=== PATIENT | female | born 1945 | race African-American/Black ===

== ENCOUNTER 2023-04-01 11:40 | Emergency (ER) | payer MEDICAID, SELFPAY ==
--- NOTE | 2023-04-01 11:46 | XR_ITS ---
WS: [id number] LEFT KNEE: 3 VIEW(S) TECHNIQUE: AP, oblique(s) and lateral. HISTORY: injury COMPARISON: None available. Acute fracture through the midportion of the patella with multiple small osseous fragments associated with the fracture. Patellar fracture is distracted by at least 2.8 cm. No additional fractures are i dentified at the knee. Joint spaces are mildly narrowed. Minimal soft tissue swelling and joint effusion. IMPRESSION: 1. Comminuted, central patellar fracture with fragments distracted by 2.8 cm. 2. No additional fracture.
[2023-04-01 11:49] VITALS: BP 189/114; PULSE 90; RESP 14; TEMP 36.8; O2SAT 98; BMI 27.3
--- NOTE | 2023-04-01 12:31 | ED_ITS ---
HPI - Extremity Problem General: Chief complaint: Extremity Injury, Lower Stated complaint: fall,left knee pain Time Seen by Provider: 04/01/23 11:59 Source: patient Mode of arrival: ambulatory History of Present Illness: 77-year-old female with a recent fall sh e landed on the left knee she is unable to extend her leg severe pain across the patella deformity of the patella with proximal dislocation. She denies any other injuries she is not on any anticoagulants. MD Complaint: joint swelling and joint pain Associated symptoms: Deny chest pain, fever(s) or rash Review of Systems Const: Denies: fever(s) or chills Card: Denies: chest pain Resp: Denies: dyspnea GI: Denies: abdominal pain : Denies: dysuria, urinary frequency or urinary urgency Musc: Reports: joint pain and joint swelling; Denies: neck pain or back pain Skin/Breast: Denies: rash Physical Exam Const: GENERAL APPEARANCE: cooperative and comfortable ORIENTATION/CONSCIOUSNESS: Yes awake, Yes oriented to person, Yes oriented to place and Yes oriented to time HENMT: COMMON NORMALS: normocephalic, atraumatic and hearing grossly normal bilaterally HEAD & SCALP: normocephalic and atraumatic Resp: COMMON NORMALS: normal respiratory effort, No retractions, No use of accessory muscles and clear to auscultation bilaterally AUSCULTATION: clear to auscultation bilaterally Cardio: COMMON NORMALS: regular rate, regular rhythm and No murmurs present (Cardio) RATE: regular rate RHYTHM: regular rhythm GI: COMMON NORMALS: Soft to palpation and No hepatosplenomegaly present AUSCULTATION: Yes normoactive bowel sounds PALPATION: Yes Soft to palpation, No Tenderness to palpation present (GI), No Guarding due to palpation present (GI) and Yes No hepatosplenomegaly present Extremity: NARRATIVE EXTREMITY EXAM: Left knee swelling obvious deformity of the patella Neuro: SENSORIUM/ORIENTATION: Yes oriented to person, Yes oriented to place and Yes oriented to time Skin: COMMON NORMALS: no rashes or lesions noted GENERAL SKIN EXAM: no rashes or lesions noted Course Vital Signs: Vital signs: Vital Signs Temperature 98.2 F 04/01/23 11:49 Pulse Rate 90 04/01/23 11:49 Respiratory Rate 14 04/01/23 11:49 Blood Pressure 189/114 04/01/23 11:49 Pulse Oximetry 98 04/01/23 11:49 Oxygen Delivery Me thod Room Air 04/01/23 11:49 MDM - Extremity (Nontraumatic) Medical Decision Making X-ray shows patellar fracture with distraction of the patella superiorly. Reviewed with Dr. España who recommends that the patient be put in a knee immobilizer nonweightbearing or if weightbearing must keep leg in full extension. Follow-up with orthopedics for definitive care pain medications given as well as a walker per patient preference Medical Records I reviewed the patient's medical records. Lab Data I reviewed the patient's lab results. All radiology interpretation(s) finalized by discharge Discharge Plan Discharge Patient Disposition: Home Clinical Impression: Fracture, patella Condition: Stable Prescriptions: New hydrocodone-acetaminophen 5-325 mg tablet 1 tab PO Q6H PRN (Reason: pain) Qty: 20 0RF Discharge Orders: Discharge ED (Routine); Ordered 04/01/23 Ordered By: Quinn Byrd Other Ambulatory Orders: DME: Walker (Order) Location: None Selected Ordered By: Quinn Byrd Referrals: Blossom So PA [Primary Care Provider] - Discharge Diet: Usual diet Discharge Activity: Limit activity as instructed Patient Instructions: Opioid Safety, Pain Management Activity Restrictions/Additional Instructions: Thank you for choosing [facility] for your healthcare needs today. Please realize this is an emergency room and that we are providing you with a medical screening exam and this may not be complete and all inclusive of all the testing and or work up that you may need to determine your ailment or severity of your illness. It is very important that you follow up as instructed or that you return to the Emergency Department should you have concerns or if your condition changes or worsens in any way. You are seen today after a fall. You have a fractured left patella. You should leave the left knee in the knee immobilizer and use walker for ambulation support. Case management will make arrangements for you to have a follow-up appointment with orthopedics for definitive repair. Nonweightbearing on the left leg unless it is fully extended as demonstrated in the emergency room today. Coding Level of Care Code ED Photoengraving Finisher for Layla Pretty
--- NOTE | 2023-04-01 13:34 | PC.SOCIAL ---
Pre-Cert number assigned: [id number]
== END 2023-04-01 14:31 | disposition home or self-care (01) ==
PROVIDERS: Emergency Provider Family Medicine; PCP Physician Assistant
DX: S82.042A Displaced comminuted fracture of left patella, initial encounter for closed fracture (principal); W19.XXXA Unspecified fall, initial encounter
CPT/HCPCS: 29530; 73562; 99283

== ENCOUNTER 2023-04-22 23:51 | Inpatient (IN) | payer MEDICAID, SELFPAY ==
[2023-04-22 23:55] VITALS: BP 180/116; PULSE 99; RESP 16; TEMP 36.6; O2SAT 98; BMI 32.8
[2023-04-23] VITALS (28 sets, daily range): BP systolic 110–201; BP diastolic 79–145; PULSE 59–109; RESP 16–98; TEMP 36.7–37.1; O2SAT 94–100; BMI 32.8
--- NOTE | 2023-04-23 00:05 | ECG_ITS ---
[facility] Test Date: 2023-04-23 Pat Name: Radha Hoffmann Department: Room: Gender: Female Cv/Cvn Cv Tsc System Operator: : 1945 Requested By: Nain Carvajal Order Number: [id number] Samia MD: Kenny Mcfarlane M.D. Measurements Intervals [place] Rate: 99 P: 0 [place]: 0 QRS: 145 QRSD: 166 T: 85 QT: 403 QTc: 518 Interpretive Statements ATRIAL FIBRILLATION WITH ABERRANT CONDUCTION OR VENTRICULAR PREMATURE COMPLEXES RIGHT AXIS DEVIATION [QRS AXIS > 100] INTRAVENTRICULAR CONDUCTION DELAY [130+ ms QRS DURATION] Compared to ECG 05/20/2016 21:21:38 Ventricular premature complex(es) now present Aberrant conduction of supraventricular beat(s) now present Right-axis deviation now present Intraventricular conduction delay now present Myocardial infarct finding no longer present T-wave abnormality no longer present Possible ischemia no longer present Electronically Signed On 04-23-2023 15:45:57 CYTOGENETIC TECHNICIAN by Kenny Mcfarlane M.D. [id number]
--- NOTE | 2023-04-23 00:05 | XRR_ITS ---
PROCEDURE INFORMATION: Exam: XR Chest Exam date and time: 04/23/2023 12:27 AM Age: 77 years old Clinical indication: Chest wall pain; Additional info: Cxp TECHNIQUE: Imaging protocol: Radiologic exam of the chest. Views: 1 view. COMPARISON: CR XR chest 1V [id number] 05/20/2016 9:40 PM FINDINGS: Tubes, catheters and devices: Monitor leads project over the chest. Lungs: No significant or acute findings. No consolidation. Pleural spaces: No significant costophrenic angle blunting. No pneumothorax. Heart/Mediastinum: Stable cardiomegaly. Vasculature: Atherosclerotic tortuosity of the thoracic aorta. Bones/joints: No acute osseous abnormality. XR/XR chest 1V portable [id number] IMPRESSION: Stable cardiomegaly.
--- NOTE | 2023-04-23 00:18 | ED_ITS ---
HPI - Chest Pain 2 General: Chief Complaint: Chest Pain Stated Complaint: indigestion Time Seen by Provider: 04/23/23 00:05 History of Present Illness: 77-year-old female presents to the emerg ency department via EMS personnel. Patient states that at approximately 1600 today while she was resting she started having a burning pressure sensation to the middle of her chest. She states she became nauseated and vomited and became very sweaty at that time. She states she currently rates her chest pain a 6 out of 10. She states she does feel short of breath when she attempts to exert herself but feels like she is not currently short of breath. She does not appear to be very diaphoretic upon arrival here to the emergency department. She is a very poor historian regarding her medical history. She is accompanied by a family member who is assisting in providing additional information. He states that the patient has a history of atrial fibrillation, hypertension and high cholesterol. Associated symptoms: Reports diaphoresis, nausea, palpitations and vomiting Review of Systems 2 General: Reports: 10 or more systems reviewed and unremarkable except in HPI and below Const: Reports: diaphoresis Card: Reports: chest pain, palpitations, irregular heart rhythm and dyspnea on exertion GI: Reports: nausea and vomiting Physical Exam 2 Const: COMMON NORMALS: patient oriented x3 GENERAL APPEARANCE: in distress, ill appearing and diaphoretic HENMT: COMMON NORMALS: normocephalic, atraumatic, EAC's normal and Normal external nose present HEAD & SCALP: normocephalic and atraumatic NOSE: N ormal external nose present EXTERNAL AUDITORY CANAL: EAC's normal Eye: COMMON NORMALS: Equal, round and reactive pupils present and EOMs intact bilaterally PUPIL: Yes Equal, round and reactive pupils present Neck/C-Spine: COMMON NORMALS: full ROM, no lymphadenopathy and supple Resp: COMMON NORMALS: normal respiratory effort and clear to auscultation bilaterally AUSCULTATION: clear to auscultation bilaterally Cardio: COMMON NORMALS: S1 normal heart sound present, S2 normal heart sound present and Peripheral pulses 2+ throughout RATE: tachycardic RHYTHM: a bnormal rhythm HEART SOUNDS: S1 normal heart sound present and S2 normal heart sound present PERIPHERAL PULSES: Peripheral pulses 2+ throughout GI: COMMON NORMALS: Normal to inspection, nondistended, normoactive bowel sounds present, Soft to palpation and non-tender PALPATION: Yes Soft to palpation Back/Pelvis: COMMON NORMALS: thoracic and lumbar spine normal to inspection and thoraco-lumbar ROM normal Extremity: COMMON NORMALS: normal to inspection and capillary refill normal LEFT LOWER EXTREMITY: Yes knee joint (Left knee immobilizer in place) Neuro: COMMON NORMALS: patient oriented x3, moves all extremities and no focal motor deficits Course 2 Vital Signs: Vital signs: Vital Signs Temperature 97.9 F 04/22/23 23:55 Pulse Rate 75 04/23/23 03:01 Respiratory Rate 28 H 04/23/23 02:45 Blood Pressure 154/88 04/23/23 03:01 Pulse Oximetry 97 04/23/23 03:01 Oxygen Delivery Me thod Room Air 04/23/23 03:01 MDM - Chest Pain Medical Decision Making I contacted Dr. Goss the animal anatomist and at this time he is requested that we not activate our STEMI team. I did discuss the patient's EKG to include a left bundle branch block and he requested that the we continue on with our cardiac medications and anticoagulation as well as Plavix and contact him once we have an initial troponin T result back Medical Records I reviewed the patient's medical records. Lab Data I reviewed the patient's lab results. 04/23/23 00:25 04/23/23 00:25 Radiology Impressions Chest X-Ray 04/23/23 00:05 IMPRESSION: Stable cardiomegaly. Laboratory Results WBC 10.49 10^3/uL (3.29-11.43) 04/23/23 00:25 RBC 5.75 10^6/uL (3.85-5.65) H 04/23/23 00:25 Hgb 13.80 g/dL (11.27-16.99) 04/23/23 00:25 Hct 47.1 % (36-47) H 04/23/23 00:25 MCV 81.9 fl (85-98) L 04/23/23 00:25 MCH 24.0 pg (27-33) L 04/23/23 00:25 MCHC 29.3 g/dL (30-55) L 04/23/23 00:25 RDW 16.3 % (12.1-15.1) H 04/23/23 00:25 Plt Count 543 10^3/cmm (157-399) H 04/23/23 00:25 MPV 9.2 fL (7.4-10.4) 04/23/23 00:25 Neut % (Auto) 77.5 % 04/23/23 00:25 Lymph % (Auto) 13.9 % 04/23/23 00:25 [place] % (Auto) 7.3 % 04/23/23 00:25 Eos % (Auto) 0.5 % 04/23/23 00:25 Baso % (Auto) 0.4 % 04/23/23 00:25 Neut # (Auto) 8.13 10^3/uL (1.8-7.7) H 04/23/23 00:25 Lymph # (Auto) 1.5 10^3/uL (0.8-4.8) 04/23/23 00:25 [place] # (Auto) 0.8 10^3/uL (0.2-0.9) 04/23/23 00:25 Eos # (Auto) 0.1 10^3/uL (0.0-0.8) 04/23/23 00:25 Baso # (Auto) 0.0 10^3/uL (0.0-0.1) 04/23/23 00:25 Nucleated RBC % (auto) 0 % 04/23/23 00:25 Nucleated RBCs # 0.0 /100WBC 04/23/23 00:25 PT 16.60 SECONDS (12.1-14.9) H 04/23/23 00:25 INR 1.29 (0.8-1.2) H 04/23/23 00:25 APTT 33.3 SECONDS (23.9-36.7) 04/23/23 00:25 Sodium 135 mmol/L (136-145) L 04/23/23 00:25 Potassium 3.3 mmol/L (3.5-5.1) L 04/23/23 00:25 Chloride 101 mmol/L (98-107) 04/23/23 00:25 Carbon Dioxide 19 mmol/L (22-29) L 04/23/23 00:25 Anion Gap 18.3 (5-19) 04/23/23 00:25 BUN 6 mg/dL (8-23) L 04/23/23 00:25 Creatinine 0.6 mg/dL (0.5-0.9) 04/23/23 00:25 GFR Calculation Not Reportable 04/23/23 00:25 Glucose 132 mg/dL (65-115) H 04/23/23 00:25 Calculated Osmolality 279 mOsm/kg (285-295) L 04/23/23 00:25 Calcium 9.0 mg/dL (8.5-10.5) 04/23/23 00:25 Total Bilirubin 0.7 mg/dL (0.15-1.2) 04/23/23 00:25 AST 19 U/L (0-32) 04/23/23 00:25 ALT 10 U/L (0-33) 04/23/23 00:25 Alkaline Phosphatase 107 U/L (35-105) H 04/23/23 00:25 Troponin T Baseline 38 ng/L (0-10) H 04/23/23 00:25 Troponin T 120 Minute 38.20 ng/L (0-10) H 04/23/23 02:36 Troponin T 120 Minute Cancelled 04/23/23 02:36 Delta Troponin T 0.20 ABS# (0-10) 04/23/23 02:36 Delta Troponin T Cancelled 04/23/23 02:36 NT-Pro-B Natriuret Pep 3099 pg/mL (0-450) H 04/23/23 00:25 Total Protein 9.3 g/dL (6.6-8.7) H 04/23/23 00:25 Albumin 3.5 g/dL (3.5-5.2) 04/23/23 00:25 Globulin 5.8 g/dL (1.3-4.6) H 04/23/23 00:25 All radiology interpretation(s) finalized by discharge EKG Data EKG 1: Interpretation: Twelve-lead EKG obtained at midnight demonstrates atrial fibrillation with a left bundle branch block, ventricular rate of 99 bpm, QRS duration 166, QT 4 3, QTc 459, EKG 2: Interpretation: Twelve-lead EKG obtained at 219 reviewed at 221 demonstrates atrial fibrillation with multifocal PVCs, ventricular rate 80 bpm, QRS duration 172, QT 430, QTc 466 Discharge Plan Discharge Patient Disposition: Placed in Observation Clinical Impression: Acute exacerbation of CHF (congestive heart failure), Chest pain Condition: Stable Prescriptions: No Action hydrocodone-acetaminophen 5-325 mg tablet 1 tab PO Q6H PRN (Reason: pain) Qty: 20 0RF amitriptyline 25 mg tablet metoprolol succinate 50 mg tablet extended release 24 hr PO digoxin 125 mcg (0.125 mg) tablet diltiazem HCl 180 mg capsule,extended release 24 hr PO Eliquis 5 mg tablet Referrals: Blossom So PA [Primary Care Provider] - Coding Level of Care Code ED Knitting Inspector for Layla Pretty
[2023-04-23] MEDS: heparin 5,000 unit/mL INJ 1 mL 4000 UNIT IVP (00:32)
[2023-04-23] MEDS: heparin drip 25,000 UNIT/500 ML PREMIX 25.7 UNIT IV (00:34)
[2023-04-23] MEDS: clopidogrel 300 mg Tablet 600 MG PO (00:36)
[2023-04-23 01:00] LABS: Basophils % 0.4 %; Eosinophils # 0.1 10^3/uL (0.0-0.8); Eosinophils % 0.5 %; Hematocrit 47.1 % (36-47); Lymphocytes # 1.5 10^3/uL (0.8-4.8); Lymphocytes % 13.9 %; Mean Corpuscular HGB Conc 29.3 g/dL (30-55); Mean Corpuscular Volume 81.9 fl (85-98); Mean Platelet Volume 9.2 fL (7.4-10.4); Monocytes # 0.8 10^3/uL (0.2-0.9); Monocytes % 7.3 %; Neutrophils # 8.13 10^3/uL (1.8-7.7); Neutrophils % 77.5 %; Nucleated Red Blood Cells % 0 %; Platelet Count 543 10^3/cmm (157-399); Red Blood Count 5.75 10^6/uL (3.85-5.65); Red Cell Distribution Width 16.3 % (12.1-15.1); White Blood Count 10.49 10^3/uL (3.29-11.43)
[2023-04-23 01:02] LABS: INR 1.29 (0.8-1.2)
[2023-04-23 01:03] LABS: Partial Thromboplastin Time 33.3 SECONDS (23.9-36.7)
[2023-04-23 01:15] LABS: Alanine Aminotransferase 10 U/L (0-33); Albumin Level 3.5 g/dL (3.5-5.2); Alkaline Phosphatase 107 U/L (35-105); Anion Gap 18.3 (5-19); Aspartate Amino Transferase 19 U/L (0-32); Blood Urea Nitrogen 6 mg/dL (8-23); Carbon Dioxide 19 mmol/L (22-29); Chloride 101 mmol/L (98-107); Globulin 5.8 g/dL (1.3-4.6); Glucose 132 mg/dL (65-115); Osmolality Calculated 279 mOsm/kg (285-295); Potassium 3.3 mmol/L (3.5-5.1); Sodium 135 mmol/L (136-145); Total Bilirubin 0.7 mg/dL (0.15-1.2); Total Protein 9.3 g/dL (6.6-8.7)
[2023-04-23 01:17] LABS: NT Pro B Type Natriuretic Pept 3099 pg/mL (0-450)
[2023-04-23 01:29] LABS: Troponin(5th) Baseline 38 ng/L (0-10)
[2023-04-23] MEDS: metoprolol tartrate 1 mg/1 mL SDV 5 mL 5 MG IVP (01:49)
[2023-04-23] MEDS: nitroglycerin 0.4 mg sublingual Tablet SUBLINGUAL ×3 (01:54→06:42)
--- NOTE | 2023-04-23 02:05 | ECG_ITS ---
[facility] Test Date: 2023-04-23 Pat Name: Radha Hoffmann Department: Room: Gender: Female Maitre D: : 1945 Requested By: Nain Carvajal Order Number: [id number] Samia MD: Kenny Mcfarlane M.D. Measurements Intervals [place] Rate: 80 P: 0 [place]: 0 QRS: -2 QRSD: 172 T: 141 QT: 430 QTc: 497 Interpretive Statements ATRIAL FIBRILLATION WITH ABERRANT CONDUCTION OR VENTRICULAR PREMATURE COMPLEXES INTRAVENTRICULAR CONDUCTION DELAY [130+ ms QRS DURATION] Compared to ECG 04/23/2023 00:00:34 Right-axis deviation no longer present Electronically Signed On 04-23-2023 15:47:44 PLASTER CASTER by Kenny Mcfarlane M.D. [id number]
[2023-04-23] MEDS: lidocaine 2% viscous 15 ML, aluminum-mag hydrox-simethicon 30 ML, sucralfate oral liq 1 GM PO (02:13)
[2023-04-23 04:46] LABS: Magnesium 2.1 mg/dL (1.7-2.3)
--- NOTE | 2023-04-23 04:52 | USCV_ITS ---
Radha Hoffmann Age: 77 Gender: F : 1945 Exam Date: 04/23/2023 14:21 Ordering Phys: Atul Newell MD Technologist: SCARLETT [place] [facility] [place]ication: CHEST PAIN BP: 182 / 94 HR: 70 Rhythm: Atrial fibrillation Technical Quality: Poor MEASUREMENTS (Male / Female) Normal Values 2D ECHO LV Diastolic Diameter PLAX 4.1 cm 4.2 - 5.9 / 3.9 - 5.3 cm IVS Diastolic Thickness 1.7 cm 0.6 - 1.0 / 0.6 - 0.9 cm IVS Systolic Thickness 2.1 cm LVPW Diastolic Thickness 1.7 cm 0.6 - 1.0 / 0.6 - 0.9 cm LVPW Systolic Thickness 2.5 cm LVOT Diameter 1.9 cm LV Ejection Fraction 2D Teich 77.0 % LV Ejection Fraction MOD 2C 72.6 % Aorta at Sinotubular Diameter 2.5 cm IVC Diameter 1.1 cm M-MODE LA Ao Ratio MM 1.1 AV Cusp Separation MM 1.2 cm DOPPLER AV Peak Velocity 168.0 cm/s LVOT Peak Velocity 140.0 cm/s AV Area Cont Eq vti 2.1 cm squared AV Area Cont Eq pk 2.3 cm squared MV Peak Velocity 179.0 cm/s MV Area PHT 1.5 cm squared Mitral E to A Ratio 44.1 TR Peak Velocity 151.0 cm/s TR Peak Gradient 9.1 mmHg PV Peak Velocity 104.0 cm/s FINDINGS Left Ventricle Left ventricle is normal in size. Moderate to severe left ventricular hypertrophy. LV systolic function is normal with EF of 55 to 60%. No regional wall motion abnormalities are seen. Right Ventricle Normal in size and function Right Atrium Normal in size Left Atrium Severely dilated Mitral Valve Severe mitral annular calcification seen. Mild mitral regurgitation. Moderate mitral stenosis with valve area of 1.57cm2. Aortic Valve Aortic valve is thickened. No significant stenosis or regurgitation. Tricuspid Valve Mild tricuspid regurgitation. Insufficient TR jet to calculate RVSP. Pulmonic Valve Mild pulmonic regurgitation. Pericardium Normal Aorta Normal in size IVC Appears to be normal CONCLUSIONS Moderate to severe left ventricular hypertrophy. LV systolic function is normal with EF of 55 to 60%. Severe mitral annular calcification. Mild mitral regurgitation. Moderate mitral stenosis. Mild tricuspid regurgitation Mild pulmonic regurgitation Compared to prior echocardiogram from 2017, no significant changesa are seen Kenny Mcfarlane MD (Electronically Signed) Final Date: 24 April 2023 07:17 S
--- NOTE | 2023-04-23 04:56 | P.HP_ITS ---
Providers/Chief Complaint 2 Primary Care Provider: Blossom So Chief Complaint: indigestion History of Present Illness Pleasant 77-year-old lady with history of atrial fibrillation on anticoagulation with Eliquis, presented to ER after experiencing chest pain at home around 4 PM last night with irregular heartbeat, possibly some faster heart rate but she states her heart was not racing. On presentation with noted left bundle branch block without prior EKG studies available, cardiology was contacted by ER physician. She was not found to have a STEMI equivalent. In ER she is reporting symptoms are improved. Discomfort down to possibly slight heartburn, nothing more at this time. Noted atrial fibrillation on telemetry. Chest x-ray with stable cardiomegaly compared to 2017. No prior echocardiogram available. She did have some associated dyspnea as well as diaphoresis. Denies cough, headache, nausea vomiting or diarrhea. Left lower leg brace due to patellar fracture. Review of Systems 2 Const: Reports: diaphoresis; Denies: fever(s), chills, body aches or malaise ENMT: Denies: throat pain Card: Reports: chest pain; Denies: edema, pre-syncope or dyspnea on exertion Resp: Denies: dyspnea, productive cough, change in phlegm color or hemoptysis GI: Denies: abdominal pain, nausea, vomiting, diarrhea, constipation, hematochezia or melena : Denies: flank pain, urinary frequency or hematuria Musc: Denies: back pain, joint swelling or joint redness Neuro: Denies: headache(s) Medications/Allergies Home Medications Medication Instructions Recorded Confirmed Last Taken Type hydrocodone 5 mg-acetaminophen 325 1 tab PO Q6H PRN pain #20 tabs 04/01/23 Unknown Rx mg tablet amitriptyline 25 mg tablet mg 04/23/23 Unknown History apixaban 5 mg tablet (Eliquis) mg 04/23/23 Unknown History digoxin 125 mcg (0.125 mg) tablet 04/23/23 Unknown History diltiazem HCl 180 mg capsule,24 mg PO 04/23/23 Unknown History hr,extended release metoprolol succinate 50 mg mg PO 04/23/23 Unknown History tablet,extended release 24 hr Allergies Allergy/AdvReac Type Severity Reaction Status Date / Time aspirin Allergy ALGY-Anaphy Verified 04/23/23 00:04 laxis PFSH Acute 2 PFSH: Medical History (Updated 04/23/23 @ 05:32 by Atul Newell MD) A-fib Vitals/I&O/Wt Last Vital Signs Temp 97.9 F 04/22/23 23:55 Pulse 75 04/23/23 03:01 Resp 28 H 04/23/23 02:45 BP 154/88 04/23/23 03:01 Pulse Ox 97 04/23/23 03:01 O2 Del Method Room Air 04/23/23 03:01 Weight last 48 hrs Weight 92.079 kg Physical Exam 2 Narrative: Accompanied by her . Const: COMMON NORMALS: patient oriented x3 and alert GENERAL APPEARANCE: c ooperative ORIENTATION/CONSCIOUSNESS: Yes awake HENMT: COMMON NORMALS: oropharynx normal Neck/C-Spine: COMMON NORMALS: no JVD Resp: COMMON NORMALS: normal respiratory effort and clear to auscultation bilaterally AUSCULTATION: clear to auscultation bilaterally Cardio: COMMON NORMALS: no JVD, regular rhythm, S1 normal heart sound present, S2 normal heart sound present and No murmurs present (Cardio) RHYTHM: a bnormal rhythm irregularly irregular HEART SOUNDS: S1 normal heart sound present and S2 normal heart sound present GI: COMMON NORMALS: Normal to inspection, nondistended, normoactive bowel sounds present, Soft to palpation and non-tender PALPATION: Yes Soft to palpation Extremity: COMMON NORMALS: no joint enlargement and no pedal edema N ARRATIVE EXTREMITY EXAM: Left lower leg brace. Neuro: COMMON NORMALS: patient oriented x3 and moves all extremities S ENSORIUM/ORIENTATION: Yes alert Skin: COMMON NORMALS: no rashes or lesions noted GENERAL SKIN EXAM: no rashes or lesions noted Data 04/23/23 00:25 04/23/23 00:25 A&P Assessment and plan (1) Chest pain: Episode of chest pain last night around 4 PM. Noted atrial fibrillation. Noted intermittent left bundle branch block/intraventricular conduction delay. No prior EKGs. Was discussed with cardiology by ER physician. Noted mild troponin elevation of 0 so far. Reviewed vitals, CBC, INR, CMP, magnesium, troponin series, NT proBNP, chest x-ray, ER note, discussed with her provider. Complete troponin EKG series. Assess with TTE. She started on NSTEMI therapeutics in ER, started anticoagulation with heparin, loaded with Plavix due to anaphylaxis allergy to aspirin, and beta-rizwan, statin, check lipid profile, monitor telemetry. She is free of chest pain currently, mild heartburn. Discussed with her and her additional assessment by stress test. NPO. With risk of bleeding with anticoagulation with heparin drip monitor PTT, monitor for bleeding, recheck blood counts. (2) Diaphoresis: Check respiratory viral panel. (3) A-fib: History of atrial fibrillation on Eliquis. Currently heparin drip as above. Toprol. Check digoxin level. Check TSH. Initially A-fib with RVR in ER, received IV metoprolol with improvement in symptoms. Plan Hypokalemia: Mild. Replace. Requested magnesium. Intermittent LBBB: Replace potassium. Check magnesium. Check TSH. Requesting to confirm home medications, please review and reconcile once available. Attestations 2 Medical Necessity Statement*: Place in observation for additional assessment management of chest pain, intermittent left bundle branch block, diaphoresis. Diagnoses Chest pain R07.9 Diaphoresis R61 A-fib I48.91
--- NOTE | 2023-04-23 06:29 | PC.NURSE ---
@ [phone]- report called to Sachin reese. Waiting for transfer until shift change.
[2023-04-23 06:56] LABS: Troponin 5 6HR 35.15 ng/L (0-10)
[2023-04-23 07:01] LABS: Troponin 5 6HR Delta -2.85 ng/L (0-12)
[2023-04-23 07:11] LABS: Thyroid Stimulating Hormone 4.34 uIU/mL (0.27-4.20)
[2023-04-23 07:12] LABS: Digoxin 0.6 ng/mL (0.6-1.2)
--- NOTE | 2023-04-23 08:43 | P.CONIM_ITS ---
Providers/Reason For Consult 2 Consulting Physician/Specialty*: Kenny Mcfarlane MD/ Cardiology Reason for Consult*: Worsening angina Requesting Physician: Dr Newell Attending Physician: Pirscilla Waller MD Primary Care Provider: Blossom So History of Present Illness History of Present Illness Radha Hoffmann is a 77 year old female with a past medical history of atrial fibrillation and no prior history of CAD presented to hospital yesterday with pain starting at 4 PM. It was substernal. Associated with diaphoresis. [place] like pressure and heartburn. Mildly elevated troponins noted. EKG shows left bundle branch block. Heart rate is controlled at this time. Still complains of chest pain mostly heart burn radiating to jaw. Mild now Review of Systems 2 Const: Reports: diaphoresis; Denies: fever(s), chills, body aches or malaise ENMT: Denies: throat pain Card: Reports: chest pain; Denies: edema, pre-syncope or dyspnea on exertion Resp: Denies: dyspnea, productive cough, change in phlegm color or hemoptysis GI: Denies: abdominal pain, nausea, vomiting, diarrhea, constipation, hematochezia or melena : Denies: flank pain, urinary frequency or hematuria Musc: Denies: back pain, joint swelling or joint redness Neuro: Denies: headache(s) Medications/Allergies Home Medications Medication Instructions Recorded Confirmed Last Taken Type amitriptyline 25 mg tablet 50 mg PO BEDTIME 04/23/23 04/23/23 04/22/23 History apixaban 5 mg tablet (Eliquis) 5 mg PO BID 04/23/23 04/23/23 04/22/23 History digoxin 125 mcg (0.125 mg) tablet See Rx Instructions .Route .COMPLEX 04/23/23 04/23/23 04/22/23 History diltiazem HCl 180 mg capsule,24 180 mg PO DAILY 04/23/23 04/23/23 04/22/23 History hr,extended release metoprolol succinate 50 mg 50 mg PO DAILY 04/23/23 04/23/23 3 Weeks Ago History tablet,extended release 24 hr ~04/02/23 Allergies Allergy/AdvReac Type Severity Reaction Status Date / Time aspirin Allergy ALGY-Anaphy Verified 04/23/23 00:04 laxis Current Medications Generic Name Dose Route Start Last Admin Trade Name Freq PRN Reason Stop Dose Admin Heparin Sodium/Sodium Chloride 25,000 unit in 500 mls @ 25.782 mls/hr 04/23/23 00:15 04/23/23 00:34 Heparin Drip IV 13.96 unit/kg/hr .[id number] RICHARD 25.7 mls/hr Administration 14 UNIT/KG/HR Nitroglycerin 0.4 mg 04/23/23 00:05 04/23/23 06:42 Nitroglycerin 0.4 Mg Sublingual Tablet SUBLINGUAL 0.4 mg Q5M PRN Administration CHEST PAIN PFSH Acute 2 PFSH: Medical History A-fib Vitals/I&O/Wt Last Vital Signs Temp 97.9 F 04/22/23 23:55 Pulse 99 04/23/23 06:29 Resp 28 H 04/23/23 06:29 BP 144/80 04/23/23 06:29 Pulse Ox 96 04/23/23 06:29 O2 Del Method Room Air 04/23/23 06:14 Weight last 48 hrs Weight 203 lb Physical Exam 2 Narrative: GENERAL: Patient is alert, awake and oriented x3. [] NECK: No jugular vein distension. [] HEENT: No cyanosis. No icterus. No pallor. [] HEART: Irregularly irregular, S1 and S2. No murmur, rub or gallop. [] LUNGS: Clear to auscultate bilaterally. CENTRAL NERVOUS SYSTEM: Grossly nonfocal. [] EXTREMITIES: Lower extremities with 1+ edema bilaterally. Data 04/24/23 02:15 04/24/23 02:15 A&P Assessment and plan (1) Chest pain: (2) Diaphoresis: (3) A-fib: Plan Patient presented with typical chest pain symptoms with mild troponin elevation. Will proceed with coronary angiogram with possible PCI tomorrow. Risks and benefits of the procedure been discussed. She understands them and wants to proceed. N.p.o. after midnight. Hold Eliquis. Continue heparin. Thank you for involving us with care of this patient. Will continue to follow. Please call with questions. Consult Attestations 2 Medical Necessity Statement: Care expected to cross 2 midnights. Coding Level of Care Code Acute Code for [facility] Diagnoses Chest pain R07.9 Diaphoresis R61 A-fib I48.91
[2023-04-23 08:46] LABS: Chol HDL Ratio 4.43 mg/dL (0.0-4.40); Cholesterol 195 mg/dL (0-200); HDL Cholesterol 44 mg/dL (60-100); LDL Cholesterol Calculated 140 mg/dL (50-129); LDL HDL Ratio 3.18 RATIO (0.00-3.22); Triglycerides 54 mg/dL (0-150)
[2023-04-23] MEDS: clopidogrel 75 mg Tablet PO (09:09)
[2023-04-23] MEDS: potassium chloride ER 20 mEq Tablet PO (09:09)
[2023-04-23] MEDS: metoprolol tartrate 50 mg Tablet PO ×2 (09:09→20:46)
[2023-04-23 09:42] LABS: Partial Thromboplastin Time 148.3 SECONDS (23.9-36.7)
[2023-04-23 11:33] LABS: Partial Thromboplastin Time 129.4 SECONDS (23.9-36.7)
--- NOTE | 2023-04-23 11:53 | PM.MISC ---
Miscellaneous Note Purpose of Documentation: Seen this morning. Patient currently not having any chest pain he says at times it comes and goes however she is comfortable at this time. at bedside. Currently on heparin drip. Cardiology consult pending. Patient most likely will require an angiogram. Will keep her n.p.o. at midnight.
[2023-04-23 13:28] LABS: Adenovirus Not Detected (NOT DETECT); Chlamydia Pneumoniae Not Detected (NOT DETECT); Coronavirus 229E,HKU1,NL63,OC4 Not Detected (NOT DETECT); Human Metapneumovirus Not Detected (NOT DETECT); Human Rhinovirus/Enterovirus Not Detected (NOT DETECT); Influenza A Not Detected (NOT DETECT); Influenza A H1 Not Detected (NOT DETECT); Influenza A H1-2009 Not Detected (NOT DETECT); Influenza A H3 Not Detected (NOT DETECT); Influenza B Not Detected (NOT DETECT); Mycoplasma Pneumoniae Not Detected (NOT DETECT); Parainfluenza Virus Type 1 Not Detected (NOT DETECT); Parainfluenza Virus Type 2 Not Detected (NOT DETECT); Parainfluenza Virus Type 3 Not Detected (NOT DETECT); Parainfluenza Virus Type 4 Not Detected (NOT DETECT); Respiratory Syncytial Virus A Not Detected (NOT DETECT); Respiratory Syncytial Virus B Not Detected (NOT DETECT); SARS-COV-2 Not Detected (NOT DETECT)
[2023-04-23] MEDS: heparin drip 25,000 UNIT/500 ML PREMIX 19 UNIT IV (20:47)
[2023-04-24 00:08] VITALS: BP 186/86; PULSE 59; RESP 16; O2SAT 100
[2023-04-24] MEDS: hyDRALAzine 20 mg/mL INJ 1 mL 5 MG IVP (01:19)
[2023-04-24 02:47] LABS: Basophils % 0.5 %; Eosinophils # 0.1 10^3/uL (0.0-0.8); Eosinophils % 1.5 %; Hematocrit 40.3 % (36-47); Lymphocytes # 1.9 10^3/uL (0.8-4.8); Mean Corpuscular HGB Conc 30.5 g/dL (30-55); Mean Corpuscular Hemoglobin 23.8 pg (27-33); Mean Corpuscular Volume 78.1 fl (85-98); Mean Platelet Volume 9.5 fL (7.4-10.4); Monocytes # 0.6 10^3/uL (0.2-0.9); Monocytes % 8.6 %; Neutrophils # 3.89 10^3/uL (1.8-7.7); Neutrophils % 59.9 %; Nucleated Red Blood Cells % 0 %; Platelet Count 503 10^3/cmm (157-399); Red Blood Count 5.16 10^6/uL (3.85-5.65); Red Cell Distribution Width 15.9 % (12.1-15.1); White Blood Count 6.49 10^3/uL (3.29-11.43)
[2023-04-24 02:56] LABS: Partial Thromboplastin Time 90.7 SECONDS (23.9-36.7)
[2023-04-24 02:57] LABS: Alanine Aminotransferase 8 U/L (0-33); Albumin Level 3.1 g/dL (3.5-5.2); Alkaline Phosphatase 89 U/L (35-105); Aspartate Amino Transferase 17 U/L (0-32); Blood Urea Nitrogen 7 mg/dL (8-23); Calcium 8.4 mg/dL (8.5-10.5); Carbon Dioxide 23 mmol/L (22-29); Chloride 104 mmol/L (98-107); Globulin 4.8 g/dL (1.3-4.6); Glucose 111 mg/dL (65-115); Osmolality Calculated 283 mOsm/kg (285-295); Sodium 137 mmol/L (136-145); Total Bilirubin 0.5 mg/dL (0.15-1.2); Total Protein 7.9 g/dL (6.6-8.7)
[2023-04-24 02:58] LABS: Anion Gap 13.3 (5-19); Potassium 3.3 mmol/L (3.5-5.1)
[2023-04-24 04:16] VITALS: BP 145/87; PULSE 68; RESP 10; O2SAT 99
--- NOTE | 2023-04-24 04:35 | PC.NURSE ---
BP has been running at 189/100 HR in the 50's, Dr Newell notified and ordered 5 mg hydralazine ivp. Medication was administered per order.
[2023-04-24] MEDS: diphenhydrAMINE 50 mg Capsule PO (05:11)
[2023-04-24] MEDS: sodium chloride 0.9% 1,000 ML 50 ML IV (05:11)
[2023-04-24] MEDS: clopidogrel 75 mg Tablet PO (05:11)
--- NOTE | 2023-04-24 06:00 | XACV_ITS ---
Exam Room: [facility] Ht: 168 cm Wt: 92 kg BSA: 2.10 m2 Gender: Female : 1945 Any Known Allergies: Asprin Exam Priority: Routine Procedure(s): Procedure Description: Diagnostic procedure Procedure Description: Coronary Angiography Diagnostic Cath Status: Urgent Diagnostic Findings * Left Main has no significant disease. * Left Anterior Descending has mild luminal irregularities. Large sized, wrap around vessel. * Circumflex has mild luminal irregularities. 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 * AL-1 catheter used to engage. Has diffuse mild to moderate luminal irregularities. * Coronary angiography shows right dominance. Conclusions 1. Non-obstructive coronary artery disease. 2. Likely microvascular dysfunction. Recommendations * Aggressive risk factor modification. * Outpatient cardiology follow up in 4 weeks. Interventional RX Recommendation: medical therapy and/or counseling Diagnostic RX Recommendation: medical therapy and/or counseling Anticoagulation: Heparin Pressures Phase:Rest AO : 144 / 90 ( 117 ) @ 6:39:00 AM 146 / 83 ( 113 ) @ 6:42:00 AM Clinical Evaluation EBL: 5mL-10mL Procedural Details Procedure Consent Obtained. Pre-Procedure Time Out. Identified patient by full name and date of as verbalized by the patient/guarantor. Does the consent match the physician's order: Yes. Accurate & Complete Informed Consent: Yes. Inpatient/Outpatient History & Physical on Chart: Yes. If H&P is completed, is and addenduem needed: No. Visualize and Verify Site with Patient/Guarantor: N/A. Relevant Radiology Images available: Yes. The risks, benefits, and alternatives of sedation and/or procedure were discussed by physician. The patient agrees to continue. Procedure started. [facility] Clinical Fraility Score: 4: Vulnerable. Cut Off Saw Operator Indications: ACS > 24 hours. Chest Pain Symptom Assessment: Atypical Angina. Correct patient, site and procedure confirmed by cath team. Current diagnosis: NSTEMI. PERRLA. Strong, equal hand commercial installer bilaterally. Lungs clear x 5 lobes. IV Site on Arrival: 18 gauge in the right anticubital. IV Fluids: 0.9% NaCl at KVO. 0 mL infused prior to supervisor labor gang. Oxygen started at 2liters/min via nasal canula. Baseline sample Acquired. HR: 60 BPM. right groin was prepped with chloroprep then draped in the usual sterile fashion. right radial was prepped with chloroprep then draped in the usual sterile fashion. Physician arrived. Physician scrubbed in. Immediate Pre-Procedure Time Out. Correct Patient: Yes; Correct Procedure: Yes; Correct Site: Yes; Correct Patient Position: Yes; Correct Supplies: Yes; Dried Flammable Prep: Yes; Blood Products Available: N/A;. Lidocaine 1% infiltrated to the right radial. Arterial access obtained. A 5 sao tomean TIG catheter in over wire. Exchange wire out. Glidewire inserted through the catheter. Catheter removed over the exchange wire. A 5 sao tomean JL3.5 catheter in over wire. Multiple views taken of left coronary artery. Catheter removed over the exchange wire. A 5 sao tomean AL1 catheter in over wire. Multiple views taken of right coronary artery. Catheter removed over the exchange wire. Physician scrubbed out. Vital chart was stopped. A TR Band was successful obtaining hemostatsis at the Right Radial artery insertion site. Post Procedure: Pulses reassessed and unchanged. PERRLA. Strong, equal hand commercial installer bilaterally. No VTE prophylaxis required. Medication's Wasted: Nitro = 49.8 mg. Medication's Wasted: Other = Fentanyl 75 mg. Medication's Wasted: Heparin = 3500 units. Total IV fluids: 50 mL. Complications: None. Estimated blood loss: 5mL-10mL. Responsiveness - Normal response to verbal stimuli; alert and oriented, PERRLA. Airway - Unaffected, no intervention required; spontaneous ventilation. Circulation: W/N/L, pulses unchanged. Nausea/Vomiting: No. Procedure completed. Patient transferred by bed to 1st floor. Access Site Site: Right Radial artery Sheath Size: 6 Fr Hemostasis Method: TR Band Hemostasis Success: Successful Procedure Medications Start: 6:24 AM Stop: 6:24 AM Medication: Versed Amount: 1 mg Route: I.V. Start: 6:26 AM Stop: 6:26 AM Medication: Fentanyl Amount: 25 mcg Route: I.V. Start: 6:31 AM Stop: 6:31 AM Medication: Nitrogylcerin Amount: 200 mcg Route: I.A. Start: 6:38 AM Stop: 6:38 AM Medication: Heparin Amount: 2500 units Route: I.V. Start: 6:42 AM Stop: 6:42 AM Medication: Versed Amount: 1 mg Route: I.V. I, the attending physician, have reviewed and verified all procedure medications. Yes, all medications given per verbal order History/Risk Factors Hypertension: No Dyslipidemia: No Peripheral Arterial Disease (PAD): No Myocardial Infarction (MO): No Obesity: Yes Renal Disease: No Tobacco Use: Never Prior Interventions PCI: No CABG: No Valve Surgery: No Report Signatures Finalized by Kenny Mcfarlane MD on 05/04/2023 10:15 AM
--- NOTE | 2023-04-24 06:25 | W.PM.OPSUD ---
Surgery/Procedure H&P Update DATE OF PROCEDURE: April 24, 2023 DATE H&P PERFORMED: 04/23/23 H&P UPDATE INFORMATION: I have reviewed H&P completed within last 30 days, I have examined patient prior to procedure and No changes to prior documentation PREOP DIAGNOSIS: Unstable angina PRIMARY INDICATION FOR PROCEDURE: Unstable angina PLANNED PROCEDURE: Left heart cath with possible percutaneous coronary intervention PATIENT REASSESSED PRIOR TO SEDATION, WITH NO CHANGE NOTED: Yes PHYSICAL EXAM: alert, oriented x 3 and clear to auscultation bilaterally OTHER PERTINENT EXAM FINDINGS: Irregularly irregular heart rhythm AIRWAY EVAL/ANESTHESIA PLAN: normal airway, ASA III, Local Anesthesia, Risks, benefits & alternatives of sedation and/or procedure discussed and Patient agrees to continue as planned
--- NOTE | 2023-04-24 06:54 | P.PN_ITS ---
Subjective 2 Subjective: Patient had coronary angiogram that shows patent coronary arteries. No chest pain Vitals/I&O/Wt Last Vital Signs Temp 98.0 F 04/23/23 21:58 Pulse 68 04/24/23 04:16 Resp 10 L 04/24/23 04:16 BP 145/87 04/24/23 04:16 Pulse Ox 99 04/24/23 04:16 O2 Del Method Room Air 04/23/23 16:00 04/23/23 04/23/23 04/24/23 14:59 22:59 06:59 Intake Total 259.57 / 259.57 117.95 / 377.52 125.083 / 502.603 Output Total 700 / 700 Balance 259.57 / 259.57 117.95 / 377.52 -574.917 / -197.397 Weight last 48 hrs Weight 203 lb Weight 203 lb Physical Exam 2 Narrative: GENERAL: Patient is alert, awake and oriented x3. [] NECK: No jugular vein distension. [] HEENT: No cyanosis. No icterus. No pallor. [] HEART: Irregularly irregular, S1 and S2. No murmur, rub or gallop. [] LUNGS: Clear to auscultate bilaterally. CENTRAL NERVOUS SYSTEM: Grossly nonfocal. [] EXTREMITIES: Lower extremities with 1+ edema bilaterally. Data 04/24/23 02:15 04/24/23 02:15 A&P Assessment and plan (1) Chest pain: (2) Diaphoresis: (3) A-fib: Plan Patient is stable. Coronary angiogram reveals nonobstructive coronary artery disease. Medical management. Resume Eliquis evening. Uptitrate metoprolol today. Thank you for involving us with care of this patient. Patient is stable to discharge from cardiology standpoint. Please call with questions. Attestations 2 Medical Necessity Statement*: Care expected to cross 2 midnights. Coding Level of Care Code Acute Code for [facility] Diagnoses Chest pain R07.9 Diaphoresis R61 A-fib I48.91
[2023-04-24 07:30] VITALS: BP 159/73; PULSE 86; RESP 26; TEMP 36.9; O2SAT 96
[2023-04-24] MEDS: metoprolol tartrate 50 mg Tablet PO (08:47)
[2023-04-24 10:57] VITALS: BP 173/99; PULSE 61; RESP 28; TEMP 36.9; O2SAT 99
--- NOTE | 2023-04-24 11:00 | P.DS_ITS ---
Discharge Providers Date of Admission: 04/23/23 05:11 Date of Discharge: April 24, 2023 Attending Provider at Admission: Atul Newell Attending Provider at Discharge: Priscilla Waller MD Primary Care Provider: Blossom So Diagnoses at Discharge Discharge Diagnosis (1) Chest pain: Status: Acute (2) Diaphoresis: Status: Acute (3) A-fib: Status: Acute Reason for Visit Reason for Visit: indigestion Brief History: Pleasant 77-year-old lady with history of atrial fibrillation on anticoagulation with Eliquis, presented to ER after experiencing chest pain at home around 4 PM last night with irregular heartbeat, possibly some faster heart rate but she states her heart was not racing. On presentation with noted left bundle branch block without prior EKG studies available, cardiology was contacted by ER physician. She was not found to have a STEMI equivalent. In ER she is reporting symptoms are improved. Discomfort down to possibly slight heartburn, nothing more at this time. Noted atrial fibrillation on telemetry. Chest x-ray with stable cardiomegaly compared to 2017. No prior echocardiogram available. She did have some associated dyspnea as well as diaphoresis. Denies cough, headache, nausea vomiting or diarrhea. Left lower leg brace due to patellar fracture. Hospital Course Hospital Course Patient presented with irregular heartbeat and was noted to have a left bundle branch block with prior EKG available. Cardiology was contacted by ER physician. She was not found to have a STEMI equivalent. Patient admitted and placed on ACS protocol. Underwent cardiac cath with patent coronaries. She will be discharged home in stable condition today. She is to follow-up with her primary care doctor as an outpatient. Physical Exam Narrative: Accompanied by her . Const: COMMON NORMALS: patient oriented x3 and alert GENERAL APPEARANCE: cooperative ORIENTATION/CONSCIOUSNESS: Yes awake HENMT: COMMON NORMALS: oropharynx normal Neck/C-Spine: COMMON NORMALS: no JVD Resp: COMMON NORMALS: normal respiratory effort and clear to auscultation bilaterally AUSCULTATION: clear to auscultation bilaterally Cardio: COMMON NORMALS: no JVD, regular rhythm, S1 normal heart sound present, S2 normal heart sound present and No murmurs present (Cardio) RHYTHM: regular rhythm and abnormal rhythm irregularly irregular HEART SOUNDS: S1 normal heart sound present and S2 normal heart sound present GI: COMMON NORMALS: Normal to inspection, nondistended, normoactive bowel sounds present, Soft to palpation and non-tender PALPATION: Yes Soft to palpation Extremity: COMMON NORMALS: no joint enlargement and no pedal edema NARRATIVE EXTREMITY EXAM: Left lower leg brace. Neuro: COMMON NORMALS: patient oriented x3 and moves all extremities SENSORIUM/ORIENTATION: Yes alert Skin: COMMON NORMALS: no rashes or lesions noted GENERAL SKIN EXAM: no rashes or lesions noted Discharge Data Studies Completed and Pending Completed Studies During Hospitalization Category Date Time Status XR chest 1V portable [id number] Stat Exams 04/23/23 00:05 Completed CV. echo complete* [id number] Routine Ultrasound 04/23/23 04:52 Completed Pending at discharge Category Date Time Status ADMINISTRATIVE JOB TITLES request for service Routine Exams 04/24/23 06:00 Taken Cardiac Stress Test MIBI [Sestamibi Stress Test Request Exams 04/23/23 04:52 Stop Req ] Routine Complete Blood Count w/Auto AM LABS Lab 04/25/23 04:00 Ordered Complete Blood Count w/Auto AM LABS Lab 04/26/23 04:00 Ordered Comprehensive Metabolic Panel AM LABS Lab 04/25/23 04:00 Ordered Comprehensive Metabolic Panel AM LABS Lab 04/26/23 04:00 Ordered Radiology Impressions Chest X-Ray 04/23/23 00:05 IMPRESSION: Stable cardiomegaly. Laboratory Results WBC 6.49 10^3/uL (3.29-11.43) 04/24/23 02:15 RBC 5.16 10^6/uL (3.85-5.65) 04/24/23 02:15 Hgb 12.30 g/dL (11.27-16.99) 04/24/23 02:15 Hct 40.3 % (36-47) 04/24/23 02:15 MCV 78.1 fl (85-98) L 04/24/23 02:15 MCH 23.8 pg (27-33) L 04/24/23 02:15 MCHC 30.5 g/dL (30-55) 04/24/23 02:15 RDW 15.9 % (12.1-15.1) H 04/24/23 02:15 Plt Count 503 10^3/cmm (157-399) H 04/24/23 02:15 MPV 9.5 fL (7.4-10.4) 04/24/23 02:15 Neut % (Auto) 59.9 % 04/24/23 02:15 Lymph % (Auto) 29.0 % 04/24/23 02:15 [place] % (Auto) 8.6 % 04/24/23 02:15 Eos % (Auto) 1.5 % 04/24/23 02:15 Baso % (Auto) 0.5 % 04/24/23 02:15 Neut # (Auto) 3.89 10^3/uL (1.8-7.7) 04/24/23 02:15 Lymph # (Auto) 1.9 10^3/uL (0.8-4.8) 04/24/23 02:15 [place] # (Auto) 0.6 10^3/uL (0.2-0.9) 04/24/23 02:15 Eos # (Auto) 0.1 10^3/uL (0.0-0.8) 04/24/23 02:15 Baso # (Auto) 0.0 10^3/uL (0.0-0.1) 04/24/23 02:15 Nucleated RBC % (auto) 0 % 04/24/23 02:15 Nucleated RBCs # 0.0 /100WBC 04/24/23 02:15 PT 16.60 SECONDS (12.1-14.9) H 04/23/23 00:25 INR 1.29 (0.8-1.2) H 04/23/23 00:25 APTT 90.7 SECONDS (23.9-36.7) H 04/24/23 02:15 Sodium 137 mmol/L (136-145) 04/24/23 02:15 Potassium 3.3 mmol/L (3.5-5.1) L 04/24/23 02:15 Chloride 104 mmol/L (98-107) 04/24/23 02:15 Carbon Dioxide 23 mmol/L (22-29) 04/24/23 02:15 Anion Gap 13.3 (5-19) 04/24/23 02:15 BUN 7 mg/dL (8-23) L 04/24/23 02:15 Creatinine 0.5 mg/dL (0.5-0.9) 04/24/23 02:15 GFR Calculation Not Reportable 04/24/23 02:15 Glucose 111 mg/dL (65-115) 04/24/23 02:15 Calculated Osmolality 283 mOsm/kg (285-295) L 04/24/23 02:15 Calcium 8.4 mg/dL (8.5-10.5) L 04/24/23 02:15 Magnesium 2.1 mg/dL (1.7-2.3) 04/23/23 02:36 Total Bilirubin 0.5 mg/dL (0.15-1.2) 04/24/23 02:15 AST 17 U/L (0-32) 04/24/23 02:15 ALT 8 U/L (0-33) 04/24/23 02:15 Alkaline Phosphatase 89 U/L (35-105) 04/24/23 02:15 Troponin T Baseline 38 ng/L (0-10) H 04/23/23 00:25 Troponin T 120 Minute 38.20 ng/L (0-10) H 04/23/23 02:36 Troponin T 120 Minute Cancelled 04/23/23 02:36 Delta Troponin T 0.20 ABS# (0-10) 04/23/23 02:36 Delta Troponin T Cancelled 04/23/23 02:36 Troponin T Hi Sens 6Hr 35.15 ng/L (0-10) H 04/23/23 06:30 Troponin T Hi Sens 6Hr Delta -2.85 ng/L (0-12) L 04/23/23 06:30 NT-Pro-B Natriuret Pep 3099 pg/mL (0-450) H 04/23/23 00:25 Total Protein 7.9 g/dL (6.6-8.7) 04/24/23 02:15 Albumin 3.1 g/dL (3.5-5.2) L 04/24/23 02:15 Globulin 4.8 g/dL (1.3-4.6) H 04/24/23 02:15 Triglycerides 54 mg/dL (0-150) 04/23/23 02:36 Cholesterol 195 mg/dL (0-200) 04/23/23 02:36 LDL Cholesterol, Calc 140 mg/dL (50-129) H 04/23/23 02:36 HDL Cholesterol 44 mg/dL (60-100) L 04/23/23 02:36 LDL/HDL Ratio 3.18 RATIO (0.00-3.22) 04/23/23 02:36 Cholesterol/HDL Ratio 4.43 mg/dL (0.0-4.40) H 04/23/23 02:36 TSH 4.34 uIU/mL (0.27-4.20) H 04/23/23 06:30 Digoxin 0.6 ng/mL (0.6-1.2) 04/23/23 06:30 Adenovirus (PCR) Not detected (NOT DETECT) 04/23/23 09:17 C. pneumoniae DNA (PCR) Not detected (NOT DETECT) 04/23/23 09:17 Coronavirus 229E (PCR) Not detected (NOT DETECT) 04/23/23 09:17 Human Metapneumovir PCR Not detected (NOT DETECT) 04/23/23 09:17 Influenza A (H1) PCR Not detected (NOT DETECT) 04/23/23 09:17 Influ A (H1/09) PCR Not detected (NOT DETECT) 04/23/23 09:17 Influenza A (H3) PCR Not detected (NOT DETECT) 04/23/23 09:17 Influenza Type A (PCR) Not detected (NOT DETECT) 04/23/23 09:17 Influenza Type B (PCR) Not detected (NOT DETECT) 04/23/23 09:17 M. pneumoniae (PCR) Not detected (NOT DETECT) 04/23/23 09:17 Parainfluenza 1 (PCR) Not detected (NOT DETECT) 04/23/23 09:17 Parainfluenza 2 (PCR) Not detected (NOT DETECT) 04/23/23 09:17 Parainfluenza 3 (PCR) Not detected (NOT DETECT) 04/23/23 09:17 Parainfluenza 4 (PCR) Not detected (NOT DETECT) 04/23/23 09:17 RSV Type A (PCR) Not detected (NOT DETECT) 04/23/23 09:17 RSV Type B (PCR) Not detected (NOT DETECT) 04/23/23 09:17 Entero/Rhino (PCR) Not detected (NOT DETECT) 04/23/23 09:17 SARS-CoV-2 (PCR) Not detected (NOT DETECT) 04/23/23 09:17 Vitals Last Vital Signs Temp 98.4 F 04/24/23 10:57 Pulse 61 04/24/23 10:57 Resp 28 H 04/24/23 10:57 BP 173/99 04/24/23 10:57 Pulse Ox 99 04/24/23 10:57 O2 Del Method Room Air 04/24/23 10:57 Discharge Plan Discharge Patient Disposition: Home Condition: Stable Prescriptions: Continued amitriptyline 25 mg tablet 50 mg PO BEDTIME metoprolol succinate 50 mg tablet extended release 24 hr 50 mg PO DAILY digoxin 125 mcg (0.125 mg) tablet See Rx Instructions .ROUTE .COMPLEX Rx Instructions: TAKE 1 TABLET ONE DAY AND ALTERNATING 2 TABLETS THE NEXT DAY. diltiazem HCl 180 mg capsule,extended release 24 hr 180 mg PO DAILY Eliquis 5 mg tablet 5 mg PO BID Discharge Orders: Discharge Order (Routine); Ordered 04/24/23 Ordered By: Priscilla Waller Referrals: Amelia De La Vega FNP [Nurse Practitioner] - 05/06/23 2:30 pm Blossom So PA [Primary Care Provider] - 05/02/23 10:40 am Discharge Diet: Cardiac Patient Instructions: Heart Failure (DC), Coronary Angioplasty (DC), CHF Stoplight, Opioid Safety, Post Angiogram Home Care Instructions Discharge Attestations Time Spent in Discharge Care*: greater than 30 min Quality Metrics Clinical Quality Measures [ No reported AMI, CVA or VTE this stay] Coding Level of Care Code 52763 Total time (in minutes) for Discharge: 35 Diagnoses Chest pain R07.9 Diaphoresis R61 A-fib I48.91
--- NOTE | 2023-04-24 13:00 | PC.NURSE ---
TR band removed per protocol. Dressing applied, no oozing or hematoma.
[2023-04-24 13:21] VITALS: BP 173/99; PULSE 61; RESP 28; TEMP 36.9; O2SAT 99
--- NOTE | 2023-04-24 13:45 | PC.NURSE ---
Discharge Note Patient discharged to home via POV accompanied by son. Discharge instructions reviewed with patient and/or major account representative. Mobile pharmacy medications and/or prescriptions provided. Belongings/home medications returned.
== END 2023-04-24 13:47 | disposition home or self-care (01) | DRG 287 ==
LOC: ER 04-23 04:01 → CSU 04-23 08:42
PROVIDERS: Internal Medicine; Admitting Provider Internal Medicine; Emergency Provider Internal Medicine; PCP Physician Assistant; Visit Provider Internal Medicine
PROC: B2111ZZ Fluoroscopy of Multiple Coronary Arteries using Low Osmolar Contrast (ICD-10-PCS; principal; 2023-04-24 06:00)
DX: R07.9 Chest pain, unspecified (principal); I48.91 Unspecified atrial fibrillation; I44.7 Left bundle-branch block, unspecified; E87.6 Hypokalemia; I25.10 Atherosclerotic heart disease of native coronary artery without angina pectoris; Z79.01 Long term (current) use of anticoagulants; Z11.52 Encounter for screening for COVID-19
CPT/HCPCS: 36415; 71045; 80053; 80061; 80162; 83735; 83880; 84443; 84484; 85025; 85610; 85730; 87486; 87581; 87633; 93005; 93306; 93454; 96361; 96365; 96366; 96375; 96376; 99152; 99153; 99291; C1769; C1887; C1894; J0360; J1644; J2250; J3010; J3490; J7030; Q0163; Q9967

== ENCOUNTER → 2023-05-06 14:19 | Outpatient (BNVA) | payer MEDICAID, SELFPAY | PROVIDERS: PCP Physician Assistant; Visit Provider Nurse Practitioner Family | DX: I48.20 Chronic atrial fibrillation, unspecified (principal); Z79.01 Long term (current) use of anticoagulants; R07.89 Other chest pain | CPT/HCPCS: 36415; 80048; 99214 ==

== ENCOUNTER → 2023-05-15 14:55 | Outpatient (BNVA) | payer MEDICAID, SELFPAY | PROVIDERS: PCP Physician Assistant; Referring Provider Family Medicine; Visit Provider Orthopaedic Surgery | DX: S82.002A Unspecified fracture of left patella, initial encounter for closed fracture (principal); T14.8XXA Other injury of unspecified body region, initial encounter; X58.XXXA Exposure to other specified factors, initial encounter | CPT/HCPCS: 73562; 99204 ==

== ENCOUNTER → 2023-06-05 13:42 | Outpatient (BNVA) | payer MEDICAID, SELFPAY | PROVIDERS: PCP Physician Assistant; Visit Provider Orthopaedic Surgery | DX: S82.042D Displaced comminuted fracture of left patella, subsequent encounter for closed fracture with routine healing (principal); X58.XXXD Exposure to other specified factors, subsequent encounter | CPT/HCPCS: 73562; 99213 ==

== ENCOUNTER → 2023-06-24 10:18 | Outpatient (BNVA) | payer MEDICAID, SELFPAY | PROVIDERS: PCP Physician Assistant; Visit Provider Orthopaedic Surgery | DX: S82.042D Displaced comminuted fracture of left patella, subsequent encounter for closed fracture with routine healing (principal); X58.XXXD Exposure to other specified factors, subsequent encounter | CPT/HCPCS: 73562; 99213 ==